=== PATIENT | male | born 1970 | race Caucasian/White ===

== ENCOUNTER 2018-12-13 13:40 | Outpatient (CLI) | payer OTHER ==
[2018-12-13 18:01] LABS: ALBUMIN 4.7 g/dL (3.2-5.5); ALBUMIN/GLOBULIN RATIO 1.5 (1.0-2.2); BILIRUBIN,TOTAL 1.2 mg/dL (0.2-1.0); CALCIUM 9.2 mg/dL (8.5-10.3); CREATININE 0.7 mg/dL (0.6-1.2); TOTAL PROTEIN 7.8 g/dL (6.7-8.2)
== END 2018-12-13 23:59 | disposition home or self-care (01) ==
LOC: LAB.S 13:40
PROVIDERS: ATTEND Nurse Practitioner
DX: K92.1 Melena (principal); R74.8 Abnormal levels of other serum enzymes
CPT/HCPCS: 36415; 80053

== ENCOUNTER 2019-02-09 15:47 | Outpatient (CLI) | payer OTHER ==
--- NOTE | 2019-02-10 10:21 | XRAY Report ---
Reason: PAIN IN RIGHT FOOT Procedure Date: 02/09/2019 Accession Number: [id number] / [id number] Procedure: XR - Foot 3 View RT CPT Code: FULL RESULT: EXAM: RIGHT FOOT RADIOGRAPHY EXAM DATE: 02/09/2019 03:58 PM. CLINICAL HISTORY: Pain in right foot. COMPARISON: None. TECHNIQUE: 3 views. FINDINGS: Bones: Os trigonum, a typically silent normal variant but rarely associated with pain. There is a fracture at the base of the proximal fourth phalanx, likely with intra-articular extension, essentially not displaced. Joints: Normal. No subluxations. Soft Tissues: Normal. No soft tissue swelling. IMPRESSION: Nondisplaced fracture of the base of the fourth proximal phalanx, likely intra-articular. [facility] The call report notification system was initiated by Dr. Manuel Glez at 10:18 AM on 02/10/2019. ADDENDUM: 02/10/19 11:51 The above call report findings were discussed with Katelyn Sanchez by Dr. Manuel Glez at 11:51 AM on 02/10/2019.
== END 2019-02-09 15:48 | disposition home or self-care (01) ==
LOC: DI 15:47
PROVIDERS: ATTEND Nurse Practitioner Acute Care
DX: S92.514A Nondisplaced fracture of proximal phalanx of right lesser toe(s), initial encounter for closed fracture (principal)

== ENCOUNTER 2019-03-14 08:00 | Outpatient (CLI) | payer OTHER ==
[2019-03-14 19:14] LABS: % IRON SATURATION 30 % (20-50); CHOL/HDL RATIO 3.6 (<5.0); CHOLESTEROL 284 mg/dL; HDL CHOLESTEROL 78 mg/dL; IRON 126 ug/dL (45-182); LDL CHOLESTEROL,CALCULATED 172 mg/dL; LDL/HDL RATIO 2.2 (<3.6); TOTAL IRON BINDING CAPACITY 419 ug/dL (250-450); TRANSFERRIN 299 mg/dL (180-329); VLDL CHOLESTEROL 34 mg/dL
[2019-03-15 15:13] LABS: HEPATITIS A IGM NON-REACTIVE (NON-REACTIVE); HEPATITIS B CORE ANTIBODY IGM NON-REACTIVE (NON-REACTIVE); HEPATITIS B SURFACE ANTIGEN NON-REACTIVE (NON-REACTIVE); HEPATITIS C ANTIBODY NON-REACTIVE (NON-REACTIVE)
[2019-03-16 15:11] LABS: ANA SCREEN NEGATIVE (NEGATIVE)
== END 2019-03-14 23:59 | disposition home or self-care (01) ==
LOC: LAB.S 08:00
PROVIDERS: ATTEND Internal Medicine Gastroenterology
DX: R74.8 Abnormal levels of other serum enzymes (principal); K92.1 Melena; Z12.11 Encounter for screening for malignant neoplasm of colon
CPT/HCPCS: 36415; 80061; 80074; 81599; 82728; 83540; 83721; 84466; 86038; 86255; 86256

== ENCOUNTER 2019-09-27 08:47 | Outpatient (CLI) | payer OTHER | END 2019-09-27 08:48 | disposition home or self-care (01) | LOC: DI 08:47 | PROVIDERS: ATTEND Nurse Practitioner Acute Care | DX: R07.9 Chest pain, unspecified (principal) | CPT/HCPCS: 93306 ==

== ENCOUNTER 2019-09-30 08:50 | Outpatient (CLI) | payer OTHER ==
--- NOTE | 2019-09-30 17:48 | CARDIAC PROCEDURE NOTE ---
DATE OF SERVICE: 09/30/2019 Physician: Patt Mitchell MD INDICATION: Chest pain, arrhythmia. CARDIAC RISK FACTORS 1. Male gender. 2. Possible HTN. 3. Family history of heart disease. 4. Smoker, who just quit 7 weeks ago. DESCRIPTION OF PROCEDURE: After signing informed consent, patient underwent a Thompson-protocol treadmill stress test with nuclear myocardial perfusion imaging. RESTING HEART RATE: 70. PEAK HEART RATE 150 (88% predicted maximum heart rate for age). RESTING BLOOD PRESSURE: 129/84. PEAK BLOOD PRESSURE: 231/90. Patient exercised for 6 minutes on a Thompson-protocol treadmill stress test. He achieved a peak heart rate of 150 (88% PMHR) and 7.1 METS. Normal heart rate response to exercise with 1 single PAC noted in early exercise. Excessive blood pressure response to exercise and it went up further in early recovery before improving. Patient had mild shortness of breath at peak, no chest pain with exertion. Stress test was stopped due to achieving target heart rate, and excessive blood pressure level. RESTING EKG: Normal sinus rhythm, short OK interval, early R/S transition. EKG AT PEAK: Vertical axis develops, no early R/S transition, nonspecific diffuse upsloping ST depressions (in leads II, III, aVF, and V3 through V6. SUMMARY 1. Abnormal resting EKG. 2. Poorly controlled BP, patient is not on any anti-hypertensive medications. 3. Nonspecific EKG changes develop with exercise (nonspecific for ischemia). 4. One PAC noted during this stress test. 5. This patient's cardiac risk based on this stress test: Moderate. 6. Nuclear images reported separately. cc: ARUNA Evangelista TD: 09/30/2019 16:13 WAN
--- NOTE | 2019-10-02 09:40 | Nuclear Medicine Report ---
Reason: CHEST PAIN, EPISODIC SYMPTOMS C/W ARRHYTHMIAS Procedure Date: 09/30/2019 Accession Number: [id number] / [id number] Procedure: NM - Myocardial Perfusion STR/RST CPT Code: Final Report FULL RESULT: EXAM: SINGLE-ISOTOPE EXERCISE STRESS TEST. SINGLE-ISOTOPE AND ONE-DAY REST/STRESS MYOCARDIAL PERFUSION SCANS WITH TOMOGRAPHIC IMAGING, QUANTITATIVE ANALYSIS, WALL MOTION ANALYSIS AND CALCULATION OF EJECTION FRACTION. EXAM DATE: 09/30/2019 02:23 PM. CLINICAL HISTORY: CHEST PAIN, EPISODIC SYMPTOMS C/W ARRHYTHMIAS. COMPARISON: None. TECHNIQUE: A rest myocardial perfusion scan was done with tomography after the intravenous administration of 10.1 mCi Tc-99m sestamibi. After an appropriate delay, a treadmill exercise stress was performed according to department protocol. The patient exercised for 6 minutes and 2 seconds. The maximum heart rate was 150 bpm, which was 88% of the maximum predicted heart rate of 170 bpm. At approximately peak heart rate, 40.2 mCi of Tc-99m sestamibi was injected for stress myocardial perfusion scan. Motion correction was applied when appropriate. Gated tomographic images were obtained for wall motion analysis and computation of left ventricular ejection fraction. FINDINGS: Perfusion images: Left ventricular chamber size appears normal at rest and unchanged at stress. No convincing fixed perfusion deficits. No convincing reversible perfusion deficits. SSS 3, SRS 2, SDS 1. Gated images: No convincing focal wall motion abnormality. Calculated left ventricular EDV 73 mL, ESV 26 mL. The left ventricular ejection fraction is estimated at 65% (normal > 50%). IMPRESSION: 1. No convincing reversible perfusion deficits to indicate stress-induced ischemia. 2. No convincing fixed perfusion deficits. 3. Left ventricular ejection fraction of 65% (normal > 50%). Please correlate findings with stress ECG tracings and procedure notes. [facility]
== END 2019-09-30 08:51 | disposition home or self-care (01) ==
LOC: DI 08:50
PROVIDERS: ATTEND Nurse Practitioner Acute Care
DX: R07.9 Chest pain, unspecified (principal); R94.31 Abnormal electrocardiogram [ECG] [EKG]; Z82.49 Family history of ischemic heart disease and other diseases of the circulatory system; Z87.891 Personal history of nicotine dependence
CPT/HCPCS: 78452; 93017; A9500

== ENCOUNTER 2023-08-29 09:43 | Outpatient (CLI) | payer OTHER ==
--- NOTE | 2023-08-31 09:06 | MRI Report ---
PROCEDURE: UPPER ARM/HUMERUS WO - LT INDICATIONS: LEFT BICEP PAIN TECHNIQUE: Noncontrast coronal and sagittal T1 spin echo and STIR; axial T1 spin echo and T2 fast spin echo with fat saturation through the left upper arm. COMPARISON: None. FINDINGS: Image quality: Excellent. Bones: Mild acromioclavicular joint and glenohumeral joint osteoarthritic changes are seen with joint space narrowing and subchondral sclerosis. There is no marrow edema. No fracture or dislocation. No suspicious bony lesions. Soft tissues: Proximal long head of biceps tendinosis is noted at the level of humeral head. No bicep s tendon rupture. Distal biceps tendon is intact to the extent visualized. No biceps muscle signal ab normalities. There is low-grade articular and bursal surface partial-thickness tear involving distal supraspinatus and distal infraspinatus tendinosis. No gross full-thickness rotator cuff tendon ruptur e. No significant rotator cuff muscle atrophy. Limited evaluation of the left shoulder labrum shows s ubtle signal abnormality involving anterior inferior labrum at 4 to 6:00 position concerning for ante rior inferior labral tear. No muscle or tendon signal abnormality is seen in rest of the upper arm. IMPRESSION: 1. Proximal long head of biceps tendinosis. No proximal or distal biceps tendon rupture. No biceps mu scle signal abnormalities. 2. Low-grade articular and bursal surface partial-thickness tear involving distal supraspinatus. Dist al infraspinatus tendinosis. No full-thickness rotator cuff tendon rupture. No significant rotator cu ff muscle atrophy. 3. Finding is concerning for anterior inferior left shoulder labral tear at 4 to 6:00 position. 4. 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 No fracture or dislocation. No suspicious bony lesions. Reviewed by: Alfred Burton MD on 08/31/2023 9:05 AM PDT Approved by: Alfred Burton MD on 08/31/2023 9:05 AM PDT Station ID: [id number]
== END 2023-08-29 09:44 | disposition home or self-care (01) ==
LOC: DI 09:43
PROVIDERS: ATTEND Student in an Organized Health Care Education/Training Program
DX: M75.112 Incomplete rotator cuff tear or rupture of left shoulder, not specified as traumatic (principal); M19.012 Primary osteoarthritis, left shoulder; M67.922 Unspecified disorder of synovium and tendon, left upper arm

== ENCOUNTER 2023-09-04 08:00 | Outpatient (CLI) | payer OTHER | END 2023-09-04 23:59 | disposition home or self-care (01) | LOC: LAB.S 08:00 | PROVIDERS: ATTEND Physician Assistant | DX: J03.90 Acute tonsillitis, unspecified (principal) | CPT/HCPCS: 87070 ==